=== PATIENT | female | born 1980 | race Caucasian/White ===

== ENCOUNTER 2023-01-09 18:25 | Emergency (ER) | payer BC, SELFPAY ==
--- NOTE | ~2023-01-09 | XR_ITS ---
EXAMINATION: XR chest 2V 01/09/2023 19:14 INDICATION: Central chest pain PROCEDURE: 2 view chest COMPARISON: No prior studies for comparison. FINDINGS: The lungs are clear. The cardiomediastinal silhouette is within normal limits. There are no pleural effusions. There is no pneumothorax suspected. IMPRESSION: 1: NO ACUTE CARDIOPULMONARY DISEASE. Reviewed, dictated and finalized at location A.
--- NOTE | 2023-01-09 18:28 | ECG_ITS ---
Measurements Intervals [place] Rate: 85 P: 56 IA: 129 QRS: 34 QRSD: 98 T: 46 QT: 381 QTc: 455 Interpretive Statements SINUS RHYTHM NORMAL ECG NO PREVIOUS ECG AVAILABLE FOR COMPARISON Electronically Signed On 01-09-2023 21:22:38 CDT by Wilberto Beach D.O.
[2023-01-09 18:55] VITALS: BP 124/96; PULSE 92; RESP 16; TEMP 36.3; O2SAT 100
[2023-01-09 19:01] LABS: Basophils Percent Auto 0.6 % (0.2-1.2); Eosinophils Percent Auto 0.4 % (0-4.4); Hematocrit 41.3 % (37.0-47.0); Hemoglobin 13.7 g/dL (12.0-15.0); Immature Granulocyte Absolute 0.03 K/mm3 (0.00-0.031); Immature Granulocyte Percent A 0.4 % (0-0.5); Lymphocytes Absolute Auto 2.13 K/mm3 (0.9-3.2); Lymphocytes Percent Auto 30.9 % (18.3-44.2); Mean Corpuscular HGB Conc 33.2 g/dl (32-36); Mean Corpuscular Hemoglobin 29.7 pg (26-34); Mean Corpuscular Volume 89.6 fl (80-100); Mean Platelet Volume 10.1 fl (7.4-10.4); Monocytes Absolute Auto 0.4 K/mm3 (0.1-0.6); Monocytes Percent Auto 6.4 % (2.6-8.5); Neutrophils Absolute Auto 4.2 K/mm3 (1.3-6.7); Neutrophils Percent Auto 61.3 % (45.5-73.1); Platelet Count Result 288 k/mm3 (150-375); Red Blood Count 4.61 M/mm3 (4.2-5.4); Red Cell Distribution Width 12.6 % (11.5-14.5); White Blood Count 6.9 K/mm3 (4.5-10.0)
[2023-01-09 19:10] LABS: Alanine Aminotransferase 20 U/L (6-35); Albumin Level 4.7 g/dL (3.5-5.1); Alkaline Phosphatase 69 U/L (38-126); Anion Gap 6 mmol/L (8-16); Aspartate Amino Transferase 21 U/L (14-36); Bilirubin,Total 0.5 mg/dL (0.2-1.3); Blood Urea Nitrogen 8 mg/dL (7-17); Calcium 9.2 mg/dL (8.4-10.2); Carbon Dioxide 25 mmol/L (22-30); Chloride 103 mmol/L (98-107); Estimated CRCL calculation 137 ml/min; Estimated Glomerular Filt Rate > 60; Glucose 118 mg/dL (65-110); Lipase 85 U/L (23-300); Potassium 3.7 mmol/L (3.4-5.0); Sodium 134 mmol/L (137-145)
[2023-01-09 19:16] LABS: Partial Thromboplastin Time 28.4 SECONDS (22.3-36.8); Prothrombin Time 12.3 Seconds (11.1-14.7)
[2023-01-09 19:22] LABS: Troponin I < 0.012 ng/mL (0.000-0.034)
[2023-01-09 19:52] VITALS: BP 128/79; PULSE 81; RESP 20; O2SAT 99
--- NOTE | 2023-01-09 22:23 | ED.CHESTPAIN ---
HPI - Chest Pain General Chief Complaint: Chest Pain <AVTAR Alba Last Filed: 01/10/23 03:11> Stated Complaint: chest pain <AVTAR Alba Last Filed: 01/10/23 03:11> Time Seen by Provider: 01/09/23 22:21 <Valerie Martel PA-C - Last Filed: 01/10/23 03:11> Source: patient <AVTAR Alba Last Filed: 01/10/23 03:11> Mode of arrival: ambulatory <AVTAR Alba Last Filed: 01/10/23 03:11> Limitations: no limitations <AVTAR Alba Last Filed: 01/10/23 03:11> History of Present Illness HPI narrative: Patient is a 42 y/o female who presents to the ED with report of midsternal chest pain. Patient reports she was on a stressful video call with work around 12:30 PM today when she developed a sharp pain in her midsternal chest. She states the sharp pain lasted for a couple seconds before resolving on its own. She experienced some tightness in her chest afterwards which has also since resolved since being in the ED. She denies any current chest pain. She denies any recent injury, strenuous activity, heavy lifting. She did not take anything for the pain. She denies any abdominal pain, nausea, vomiting, difficulty breathing, pleuritic pain, lower extremity pain or swelling, history of CAD, hypertension, hyperlipidemia, diabetes, PE/DVT, smoking. She does report a family history of heart disease in her father in his 60s. <AVTAR Alba Last Filed: 01/10/23 03:11> Related Data Allergies/Adverse Reactions: Allergies Allergy/AdvReac Type Severity Reaction Status Date / Time No Known Allergies Allergy Verified 01/09/23 23:33 <AVTAR Alba Last Filed: 01/10/23 03:11> Review of Systems Review of Systems: CONSTITUTIONAL: Denies fever, chills, or sweats. ENT: Denies rhinorrhea, congestion, sore throat. CARDIOVASCULAR: See HPI. RESPIRATORY: Denies cough or dyspnea. GASTROINTESTINAL: Denies abdominal pain, nausea, vomiting. MUSCULOSKELETAL: Denies back pain, joint pain, or myalgia. NEUROLOGIC: Denies headache, numbness, or weakness. <Valerie Martel PA-C - Last Filed: 01/10/23 03:11> All systems reviewed & are unremarkable except as noted in HPI and below <Valerie Martel PA-C - Last Filed: 01/10/23 03:11> [facility] Past Medical History Medical History: Medical History (Updated 01/10/23 @ 03:08 by Valerie Martel PA-C) No pertinent past medical history <Valerie Martel PA-C - Last Filed: 01/10/23 03:11> Surgical History Surgical History: Surgical History (Updated 01/10/23 @ 03:08 by Valerie Martel PA-C) No pertinent past surgical history <Valerie Martel PA-C - Last Filed: 01/10/23 03:11> Social History Social History: Social History (Updated 01/10/23 @ 03:08 by Valerie Martel PA-C) Smoking status: Never smoker <Valerie Martel PA-C - Last Filed: 01/10/23 03:11> Exam Narrative: GENERAL: Well appearing, well-nourished, non-toxic, in no acute distress. HEAD: Normocephalic, atraumatic. NECK: Supple. No adenopathy, no masses. RESPIRATORY: Airway patent, respirations nonlabored. Clear to auscultation bilaterally, no rales, rhonchi, wheezing. CARDIOVASCULAR: Regular rate and rhythm without murmurs, rubs, or gallops. Radial pulses 2+ and equal bilaterally. ABDOMINAL: Soft, nontender, nondistended, no hepatosplenomegaly. Normoactive BS. MUSCULOSKELETAL: Moves all extremities. Strength/ROM intact without gross deformities. Mild tenderness over sternum/anterior chest wall. No calf tenderness. No edema. SKIN: Warm, dry, normal color. No rashes. NEURO: A&O X3. Speech clear. Cranial nerves II-XII grossly intact. Steady gait. No ataxic movements. PSYCHIATRIC: Appropriate mood and affect. Normal interaction. 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
[2023-01-09 22:30] LABS: Troponin I < 0.012 ng/mL (0.000-0.034)
[2023-01-09] MEDS: Please add drug allergy info to patient profile. 1 EACH XX (23:33)
[2023-01-09 23:48] VITALS: BP 123/79; PULSE 77; RESP 18; TEMP 36.6; O2SAT 99
== END 2023-01-09 23:48 | disposition home or self-care (01) ==
LOC: ANHED 23:29
PROVIDERS: Emergency Medicine; Emergency Provider Physician Assistant; PCP Emergency Medicine
DX: R07.89 Other chest pain (principal)
CPT/HCPCS: 36415; 71046; 80053; 83690; 84484; 85025; 85610; 85730; 93005; 99284